=== PATIENT | female | born 1965 | race Caucasian/White ===

== ENCOUNTER 2023-01-28 17:39 | Emergency (ER) | payer MEDICARE, MEDICAID, SELFPAY ==
[2023-01-28 17:44] VITALS: BP 174/88; PULSE 111; RESP 16; TEMP 37.3; O2SAT 96; BMI 18.1
[2023-01-28 18:15] LABS: Appearance Urine Cloudy; Color Urine Yellow; Glucose Urine UA Negative (Negative); Leukocyte Esterase Urine Negative (Negative); Nitrite Urine Negative (Negative); Specific Gravity - Urine <= 1.005 (1.005-1.025); Urine Blood Negative (Negative); Urine Ketones Negative (Negative); Urine Protein Negative (Neg-Trace)
[2023-01-28 18:21] LABS: Amphetamine Screen Urine Not Detected (Not Detect); Barbiturates, Urine Not Detected (Not Detect); Benzodiazepines Screen Urine Not Detected (Not Detect); COVID-19 Test Negative (Negative); Cannabinoid Screen Urine Not Detected (Not Detect); Cocaine Screen Urine Not Detected (Not Detect); Fentanyl, urine Not Detected (Not Detect); IDNOW Serial# 08D9AD1C; Opiate Screen Urine POSITIVE (Not Detect); Phencyclidine Screen Urine Not Detected (Not Detect)
--- NOTE | 2023-01-28 18:34 | ED.GENADULT ---
HPI - General Adult General Chief complaint: Psychiatric Symptoms Stated complaint: crisis Time Seen by Provider: 01/28/23 17:44 Source: patient, RN notes reviewed and other (Prescription monitoring program) History of Present Illness HPI narrative: Patient sent in by her PCP secondary to concerns for suicidal ideation. Patient has a history of chronic pain on chronic opioid therapy for her pain. She was called in to her PCPs office today for a pill count and came up short. She states this has been her practice for many years. She recently had her PCP is the 1st time she was called in for pill count. She states she has never come up short at the end of the month but at times she does take extra when she has more pain but then takes less when she has less pain She was told by her PCP that because of this that they were going to taper her slowly off of her pain medications. She stated that she was not willing to live in that much pain. They therefore called EMS with concerns for suicidal ideation. Patient is currently denying suicidal ideation. She states in the future if she is completely without pain medication she might consider but for the time her PCP is 1 to be working with her and a specialist for a better pain management program. She is comfortable with this plan. Suicidal thoughts. She does discuss some depression secondary to chronic pain. She denies hearing voices or other psychiatric symptoms. Related Data Allergies Allergy/AdvReac Type Severity Reaction Status Date / Time codeine Allergy Mild RASH Unverified 07/19/20 15:22 latex [Latex] Allergy Mild RASH Unverified 07/19/20 15:22 Penicillins Allergy Mild RASH Unverified 07/19/20 15:22 Sulfa (Sulfonamide Allergy Mild RASH Unverified 07/19/20 15:22 Antibiotics) penicillin V Allergy Unknown Verified 06/16/17 00:00 latex Allergy Unknown Uncoded 06/16/17 00:00 Review of Systems Constitutional: Comments: No fevers or chills. Chronic malaise Cardiovascular: Comments: No chest pain Respiratory: Comments: No shortness of breath Gastrointestinal: Comments: No abdominal pain Musculoskeletal: Comments: Chronic neuropathic pain Neurologic: Comments: Chronic neuropathic pain Physical Exam ED Vital Signs: Vital Signs - 24 hr 01/28/23 17:44 Temperature 99.2 F Pulse Rate 111 H Respiratory Rate 16 Blood Pressure 174/88 H Pulse Oximetry 96 Oxygen Delivery Method Room Air BMI result Body Mass Index 18.1 Const Other: Awake alert no acute distress HENMT Other: Normocephalic atraumatic Resp Other: No respiratory distress Neuro Other: Ambulates without evidence of focal weakness Psych Other: Endorses depression. Adamantly denies suicidal ideation. Contracts for safety. Has future oriented plans for pain management. Medical Decision Making Medical Decision Making MDM Narrative: After discussion with patient about her statements and how she is currently feeling, there is no evidence that she is at acute risk for self-harm or harm for others. Crisis evaluation at this time. She is stable for discharge home. I nader confirmed on the prescription monitoring program she does take large does oxycodone and morphine. She typically takes 180 mg total of oxycodone daily. She is due for 60 mg now. I will prescribe 1 dose before we discharge her home. Lab Data Labs: Lab Results 01/28/23 01/28/23 01/28/23 Range/Units 18:00 18:00 18:00 Urine Color Yellow Urine Appearance Cloudy Urine pH 6.0 (5.0-9.0) Ur Specific [place] <= 1.005 (1.005-1.025) Urine Protein Negative (Neg-Trace) mg/dL Urine Glucose (UA) Negative (Negative) mg/dL Urine Ketones Negative (Negative) mg/dL Urine Blood Negative (Negative) Urine Nitrite Negative (Negative) Ur Leukocyte Esterase Negative (Negative) Urine Opiates Screen POSITIVE H (Not Detect) Urine Fentanyl Screen Not Detected (Not Detect) Ur Barbiturates Screen Not Detected (Not Detect) Ur Phencyclidine Scrn Not Detected (Not Detect) Ur Amphetamines Screen Not Detected (Not Detect) U Benzodiazepines Scrn Not Detected (Not Detect) Urine Cocaine Screen Not Detected (Not Detect) U Marijuana (THC) Screen Not Detected (Not Detect) COVID-19 (TESS) Negative (Negative) COVID-19 Clin Com See Note Discharge Plan Discharge Clinical Impression: Depression Patient Disposition: Home, Self-Care Instructions: Depression (ED) Additional Instructions: Return if worse. Continue current medications as prescribed. Follow-up with your primary care physician very closely to arrange continued same medication
[2023-01-28 18:46] VITALS: BP 128/67; PULSE 73; RESP 13; TEMP 37.1; O2SAT 97
[2023-01-28] MEDS: oxyCODONE HCl Immed Release 15 MG TABLET 60 MG PO (18:53)
== END 2023-01-28 19:00 | disposition home or self-care (01) ==
PROVIDERS: Emergency Provider Emergency Medicine; PCP Physician Assistant Medical
DX: F33.1 Major depressive disorder, recurrent, moderate (principal); R45.851 Suicidal ideations; G89.29 Other chronic pain; Z20.822 Contact with and (suspected) exposure to COVID-19; Z20.828 Contact with and (suspected) exposure to other viral communicable diseases; Z79.899 Other long term (current) drug therapy
CPT/HCPCS: 80307; 81003; 87635; 99284